=== PATIENT | male | born 1975 | race Two or more races ===

== ENCOUNTER 2025-02-09 19:02 | Emergency (ER) | payer OTHER, SELFPAY ==
[2025-02-09 19:37] VITALS: BP 153/101; PULSE 88; RESP 20; TEMP 37.3; O2SAT 95
--- NOTE | 2025-02-09 19:41 | XR_ITS ---
Examination: CT lumbar spine, without contrast. 2-D sagittal reconstructions. 2-D coronal reconstructions. 3-D reconstructions. Date and time of exam: February 09, 2025, 1947 hours, comparison April 28, 2007 INDICATIONS: Patient fell off a ladder today with injury to lower back, lower back pain CTDI: vol (mGy): 25.3 DLP: (mGycm): 717 Technique: Multiple 1.25 mm axial sections of the lumbar spine without intravenous contrast have been obtained. 2-D sagittal and coronal reconstructions have been obtained. 3-D reconstructions have been obtained. Low dose protocols were performed. One or more of the following dose reduction techniques were used; automated exposure control, adjustment of the mA and/or KV according to patient size, use of iterative reconstruction technique. Findings: Severe osteopenia Acute burst type compression fracture of L2 vertebral body, depression superior endplate, reduction in height 20%, retropulsion posterior superior margin of this vertebral body 2 mm Severe L3 vertebral body fracture which appears chronic, retropulsion of the posterior superior margin of this vertebral body 9 mm Small fracture at the anterior cortical margin of the L4 vertebral body sagittal image 59 Minimal old depression superior endplate L5 Advanced degenerative disc disease L5-S1 IMPRESSION: Acute burst compression fracture of L2 vertebral body as above Small fracture anterior cortical margin of the L4 vertebral body without significant offset
--- NOTE | 2025-02-09 19:41 | XR_ITS ---
Examination: CT thoracic spine, without contrast. 2-D sagittal reconstructions. 2-D coronal reconstructions. 3-D reconstructions. Date and time of exam: February 09, 2025, 1947 hours, comparison April 27, 2018 CTDI: vol (mGy): 38.9 DLP: (mGycm): 1356 Technique: Multiple 1.25 mm axial sections of the thoracic spine without intravenous contrast have been obtained. 2-D sagittal and coronal reconstructions have been obtained. 3-D reconstructions have been obtained. Low dose protocols were performed. One or more of the following dose reduction techniques were used; automated exposure control, adjustment of the mA and/or KV according to patient size, use of iterative reconstruction technique. Findings: Severe osteopenia No acute thoracic fracture Mild diffuse thoracic disc narrowing Satisfactory alignment posterior spinous processes Thoracic pedicles and laminae appear intact IMPRESSION: No acute thoracic fracture
[2025-02-09] MEDS: HYDROcodone/APAP 5/325 TABLET 1 TAB PO (19:47)
[2025-02-09] MEDS: KETOROLAC INJ 60 MG/2 ML VIAL IM (19:47)
--- NOTE | 2025-02-09 22:13 | PD.EDRME ---
Rapid Medical Screening Exam [facility] Arrival date/time: 02/09/25 19:02 This is a case of 49-year-old male with no medical history came in in the emergency room for back pain history of present illness started around 2:50 PM patient is at work and fell to a ladder and landed on the back patient was seen by the Worker's Comp. doctor were he was told that he has a fracture on the back patient denies any other injury denies any head neck chest or abdominal injury Chief Complaint: Back Pain/Injury Time Seen by Provider: 02/09/25 19:07 Vital signs: Vital Signs Temperature 99.1 F 02/09/25 19:37 Pulse Rate 88 02/09/25 19:37 Respiratory Rate 20 02/09/25 19:37 Blood Pressure 153/101 H 02/09/25 19:37 Pulse Oximetry (%) 95 02/09/25 19:37 Oxygen Delivery Method Room Air 02/09/25 19:37 Exam: Moderate tenderness on the thoracic and lumbar area no crepitation no deformity no redness no swelling ROM is limited to the pain Clinical Impression: Back pain
--- NOTE | 2025-02-09 22:43 | EDNOTE_ITS ---
ED Back Injury Pain RME/HPI General Chief Complaint: Back Pain/Injury Stated Complaint: LOWER BACK INJURY, FALL AT WORK TODAY Time Seen by Provider: 02/09/25 19:07 Arrival date/time: 02/09/25 19:02 RME / HPI RME / HPI Narrative: 02/09/25 19:02 This is a case of 49-year-old male with no medical history came in in the emergency room for back pain history of present illness started around 2:50 PM patient is at work and fell to a ladder and landed on the back patient was seen by the Worker's Comp. doctor were he was told that he has a fracture on the back patient denies any other injury denies any head neck chest or abdominal injury Dr. Posey?s Main ED Evaluation: 49yo male with a history of MS, DM presents to the ED for a chief complaint of back pain s/p fall. Patient states he was at work lifting a 20 lb tank on a ladder while 10 feet in the air when he felt his ladder tilting back, reporting he fell and landed on his feet. Patient denies any head strikes or loss of consciousness. Patient denies any headache, neck pain, chest pain, abdominal pain, BLE pain, or any other associated symptoms. NKA. Related Data Home Medications ?Medication ?Instructions ?Recorded ?Confirmed Unobtainable 04/27/18 04/27/18 Allergies Allergy/AdvReac Type Severity Reaction Status Date / Time No Known Allergies Allergy Verified 02/09/25 19:05 Review of Systems Review of Systems Systems Reviewed: All systems reviewed, normal except as documented Past Medical History Past Medical History NEUROLOGIC: Positive Neurological Disorders and Multiple Sclerosis CARDIAC: Negative Cardiac Disorders or Congestive Heart Failure RESPIRATORY: Negative Chronic Obstructive Pulmonary Disease (COPD) or Asthma GENITOURINARY: Negative Renal Disease ENDOCRINE: Positive Diabetes Mellitus Type 2; Negative Diabetes Mellitus Type 1 HEMATOLOGIC: Negative Sickle Cell Disease Social History SMOKING STATUS: Never smoker SUBSTANCE USE: does not use ED Exam Narrative Physical exam: Generally patient is alert no obvious distress, heart regular rate and rhythm, lungs clear to auscultation equal bilaterally, abdomen soft bowel sounds present nondistended nontender, extremities show no deformities and no tenderness or swelling to the calcaneus on the right or the left. Musculoskeletal exam showed the patient had minimal tenderness to palpation to the upper lumbar spine. Neurologic exam is intact with [place] Coma Scale of 15 Course Quality Measures none Orders Category Date Time Status CT lumbar spine wo con Stat Exams 02/09/25 19:[address] thoracic spine wo con Stat Exams 02/09/25 19:41 Completed HYDROcodone*/APAP 5/325 [[place] 5/325] Med 02/09/25 19:41 Discontinued 1 tab PO X1 ONE Ketorolac Inj [Toradol Inj] Med 02/09/25 19:41 Discontinued 60 mg IM X1 ONE Vital Signs Vital signs: Vital Signs Temperature 99.1 F 02/09/25 19:37 Pulse Rate 88 02/09/25 19:37 Respiratory Rate 20 02/09/25 19:37 Blood Pressure 153/101 H 02/09/25 19:37 Pulse Oximetry (%) 95 02/09/25 19:37 Oxygen Delivery Method Room Air 02/09/25 19:37 Back Pain / Injury MDM Narrative MDM Narrative:: Scribe Attestation: 02/09/25 Pearl Tate am scribing for and in the presence of Dr. Posey. CT scan of the thoracic spine showed no fracture. CT scan of the lumbosacral spine showed an acute burst fracture of L2 with compression of the superior endplate and reduction of height by 20% with retropulsion of the posterior superior margin of the vertebral body of 2 mm. There was also a L3 vertebral body fracture which appears to be chronic with retropulsion of the posterior superior margin of the vertebral body of 9 mm. There is also a small fracture of indeterminate age of the anterior cortical margin of the L3 vertebral body. Patient is neurologically intact. Due to the fact that this is a burst fracture it would imply that it is an unstable fracture. Currently at this time I am waiting to obtain consultation from a back surgeon for advice for disposition. Patient data External records reviewed:: [facility] previous records (Per chart review, patient was seen here on 04/27/18 for cosed compression fracture of L3 vertebra) Clinical information provided by:: patient Social determinants that could affect healthcare access:: none Patient has the following chronic illnesses:: MS, DM How is presenting disease/condition affected by chronic disease/condition?: exacerbated by Evaluation data The following diagnostics were reviewed and interpreted by me:: radiology exam(s) Lab and/or radiology exams considered but not ordered:: none Interpretation Summary: [facility] Report Signed Patient: DAMION GAVIN [facility]. Record#: [id number] Birthdate: 1975 Age/Sex: 49 / M Location: [facility] Attending Dr: Ordering Physician: Renetta Godoy Date of Service: 02/09/25 Procedure(s): CT thoracic spine wo con Accession Number(s): [id number] cc: Tato Murcia MD; Renetta Godoy~ Examination: CT thoracic spine, without contrast. 2-D sagittal reconstructions. 2-D coronal reconstructions. 3-D reconstructions. Date and time of exam: February 09, 2025, 1947 hours, comparison April 27, 2018 CTDI: vol (mGy): 38.9 DLP: (mGycm): 1356 Technique: Multiple 1.25 mm axial sections of the thoracic spine without intravenous contrast have been obtained. 2-D sagittal and coronal reconstructions have been obtained. 3-D reconstructions have been obtained. Low dose protocols were performed. One or more of the following dose reduction techniques were used; automated exposure control, adjustment of the mA and/or KV according to patient size, use of iterative reconstruction technique. Findings: Severe osteopenia No acute thoracic fracture Mild diffuse thoracic disc narrowing Satisfactory alignment posterior spinous processes Thoracic pedicles and laminae appear intact IMPRESSION: No acute thoracic fracture Dictated By: Tato Murcia MD Signed By: <Electronically signed by Tato Murcia MD in OV> 02/09/25 2138 [facility] Report Signed Patient: DAMION GAVIN [facility]. Record#: [id number] Birthdate: 1975 Age/Sex: 49 / M Location: [facility] Attending Dr: Ordering Physician: Renetta Godoy Date of Service: 02/09/25 Procedure(s): CT lumbar spine wo con Accession Number(s): [id number] cc: Tato Murcia MD; Godoy,Noralda Q [employer]~ Examination: CT lumbar spine, without contrast. 2-D sagittal reconstructions. 2-D coronal reconstructions. 3-D reconstructions. Date and time of exam: February 09, 2025, 1947 hours, comparison April 28, 2007 INDICATIONS: Patient fell off a ladder today with injury to lower back, lower back pain CTDI: vol (mGy): 25.3 DLP: (mGycm): 717 Technique: Multiple 1.25 mm axial sections of the lumbar spine without intravenous contrast have been obtained. 2-D sagittal and coronal reconstructions have been obtained. 3-D reconstructions have been obtained. Low dose protocols were performed. One or more of the following dose reduction techniques were used; automated exposure control, adjustment of the mA and/or KV according to patient size, use of iterative reconstruction technique. Findings: Severe osteopenia Acute burst type compression fracture of L2 vertebral body, depression superior endplate, reduction in height 20%, retropulsion posterior superior margin of this vertebral body 2 mm Severe L3 vertebral body fracture which appears chronic, retropulsion of the posterior superior margin of this vertebral body 9 mm Small fracture at the anterior cortical margin of the L4 vertebral body sagittal image 59 Minimal old depression superior endplate L5 Advanced degenerative disc disease L5-S1 IMPRESSION: Acute burst compression fracture of L2 vertebral body as above Small fracture anterior cortical margin of the L4 vertebral body without significant offset Dictated By: Tato Murcia MD Signed By: <Electronically signed by Tato Murcia MD in OV> 02/09/25 2137 Medications / Prescriptions Medications or Prescriptions considered but not ordered:: none Medication administrations:: Medication Administration History Discontinued Medications Hydrocodone Bitart/Acetaminophen (Hydrocodone/Apap 5/325 Tablet) 1 tab PO X1 ONE Stop: 02/09/25 19:42 Last Admin: 02/09/25 19:47 Dose: 1 tab Documented By: SAMEER Ketorolac Tromethamine (Ketorolac Inj 60 Mg/2 Ml Vial) 60 mg IM X1 ONE Stop: 02/09/25 19:42 Last Admin: 02/09/25 19:47 Dose: 60 mg Documented By: SAMEER see above Consultations Consultation(s) initiated? (list below): Yes Diagnosis Differential diagnosis back pain/injury: other (See MDM) Most likely diagnosis given after review of the tests above:: see clinical impression below Admission Indicated Admission indicated?: not indicated Admission Request Was there a request for admission?: No Disposition Plan Disposition Plan: Transfer Discharge Plan Prescriptions/Referrals Prescriptions/Med Rec: No Action Unobtainable Referrals: Katie Bella MD [Primary Care Provider, Family Practice] - In 1 week Problem List Clinical Impression: Burst fracture of lumbar vertebra Patient/Caregiver Discharge Instructions Print Language: [place]
[2025-02-09 22:59] VITALS: BP 138/93; PULSE 77; RESP 18; TEMP 36.8; O2SAT 94
[2025-02-10 01:03] VITALS: BP 168/101; PULSE 78; RESP 20; TEMP 36.9; O2SAT 96
[2025-02-10 02:35] VITALS: BP 149/98; PULSE 77; RESP 19; TEMP 36.9; O2SAT 96
--- NOTE | 2025-02-10 02:48 | PD.EDADDENDU ---
Emergency Room Addendum Addendum Narrative: I spoke with neurosurgeon, Dr. Miller from [facility] who has graciously accepted this patient in transfer. He wishes for the patient to go ED to ED to undergo an MRI of the lumbar sacral spine. At this time I do not have MRI capability. I also do not have a back surgeon or a neurosurgeon on-call. Patient was notified of the transfer and agrees to the transfer and will be transferred in stable condition.
--- NOTE | 2025-02-10 03:23 | PC.NURSE ---
[id number] [facility] faxed over clinicals spoke to Henry at the transfer center stated case would be presented to Neuro, [facility] responded and stated case would be presented at 0800 at [facility] and pt was wait listed at this time. [id number] [facility] faxed over clinicals and forwarded imaging- Ronni called back with accepting info @[phone] to Ed Nurse to Nurse Report to [phone]
[2025-02-10 03:56] VITALS: BP 156/105; PULSE 82; RESP 18; TEMP 36.6; O2SAT 97
[2025-02-10] MEDS: MORPHINE SULF INJ 4 MG/ML VIAL IVP (04:00)
--- NOTE | 2025-02-10 04:12 | PC.NURSE ---
ATTEMPTED TO CALL [facility] TO GIVE REPORT WAS TRANSFERRED THREE TIMES TO NO ANSWER.
== END 2025-02-10 04:38 | disposition short-term general hospital (02) ==
PROVIDERS: Emergency Provider Emergency Medicine; PCP Family Medicine
DX: S32.021A Stable burst fracture of second lumbar vertebra, initial encounter for closed fracture (principal); S32.049A Unspecified fracture of fourth lumbar vertebra, initial encounter for closed fracture; M54.6 Pain in thoracic spine; W11.XXXA Fall on and from ladder, initial encounter; Y99.0 Civilian activity done for income or pay; Z75.1 Person awaiting admission to adequate facility elsewhere
CPT/HCPCS: 72128; 72131; 96372; 96374; 99284; J1885; J2270; A9270